=== PATIENT | male | born 1965 | race African-American/Black ===

== ENCOUNTER 2019-11-14 07:43 | Observation (INO) | payer OTHER ==
[~2019-11-14] VITALS: Ht 170.2 cm; Wt 97.2 kg
[2019-11-14] MEDS ORDERED: NITR0.4S14 SL (08:02)
[2019-11-14] MEDS ORDERED: LISI40TA PO (08:02)
[2019-11-14] MEDS ORDERED: ATOR80TA59 PO (08:02)
[2019-11-14] MEDS ORDERED: CETI10CH PO (08:02)
--- NOTE | 2019-11-14 08:39 | REP ---
Clinical: Headache . Comparison: None . Findings: The ventricles, sulci, and cisterns are normal in position and appearance. Sarabia-white differentiation is maintained. No acute intracranial hemorrhage, mass/mass effect, pathology or trauma/injury. No evidence for acute infarction. No extra-axial fluid collection. Calvarium is intact. Paranasal sinuses and mastoid air cells are clear. Impression: Normal noncontrast head CT. No evidence for acute intracranial pathology or trauma/injury. Electronically Signed by Sean Dhillon MD 11/14/2019 08:30 A
--- NOTE | 2019-11-14 08:40 | REP ---
Clinical: Chest pain . Comparison: 09/05/2006 . Findings: The mediastinum and cardiac silhouette are stable and within normal limits for portable technique. The lung blum are clear without acute consolidation, effusion, or pneumothorax. Skeletal structures are intact. Impression: No acute cardiopulmonary process appreciated. Electronically Signed by Sean Dhillon MD 11/14/2019 08:31 A
[2019-11-14] MEDS ORDERED: ISOVUE-370 76% 100ML VIAL (Q9967) As Ordered ONE (08:45)
[2019-11-14 08:54] LABS: BASO % 0.7 % (0.0-1.0); EOS # 0.3 10^3/uL (0.0-0.5); EOS % 11.1 % (0.0-3.0); HEMATOCRIT 40.8 % (42.0-52.0); HEMOGLOBIN 13.4 g/dl (13.5-17.5); LYMPH # 0.9 10^3/uL (1.5-5.0); LYMPH % 31.8 % (24.0-44.0); MEAN CORPUSCULAR HEMOGLOBIN 26.7 pg (27.0-33.0); MEAN CORPUSCULAR HGB CONC 32.8 g/dl (32.0-36.5); MEAN CORPUSCULAR VOLUME 81.4 fl (80.0-96.0); MONO # 0.3 10^3/uL (0.0-0.8); NEUTROPHILS # 1.3 10^3/uL (1.5-8.5); PLATELET COUNT, AUTOMATED 172 10^3/uL (150-450); RED BLOOD COUNT 5.01 10^6/uL (4.30-6.10); WHITE BLOOD COUNT 2.8 10^3/uL (4.0-10.0)
[2019-11-14] MEDS ORDERED: METOCLOPRAMIDE INJ 10MG/2ML VIAL (J2765) IV ONE (09:00)
[2019-11-14] MEDS ORDERED: diphenhydrAMINE INJ 50MG/ML VIAL (J1200) IV STA (09:00)
--- NOTE | 2019-11-14 09:10 | REP ---
Clinical: Acute chest pain and shortness of breath . Technique: Axial contrast enhanced images from the thoracic inlet to the upper abdomen using 75 ml Isovue 370 intravenous contrast material with multiplanar re-formations. Findings: Satisfactory enhancement of the pulmonary vasculature is achieved and no filling defects are identified to suggest pulmonary embolus. Further evaluation of the mediastinum demonstrates normal thoracic aorta, heart and pericardium. The bilateral lung blum are well aerated and clear without consolidation pleural effusion or pneumothorax. Tracheobronchial tree is patent. No nodule or mass lesion is identified. No adenopathy noted. Surrounding musculoskeletal structures intact Impression: No evidence for pulmonary embolus. No acute mediastinal or pleural parenchymal process. Electronically Signed by Saen Dhillon MD 11/14/2019 09:01 A
[2019-11-14 09:14] LABS: INFLUENZA A AMPLIFICATION NEGATIVE (NEGATIVE); INFLUENZA B AMPLIFICATION NEGATIVE (NEGATIVE)
[2019-11-14] MEDS ORDERED: KETOROLAC 30 MG/ML VIAL (J1885) IV ONE (09:15)
[2019-11-14 09:26] LABS: INR 0.99; PROTHROMBIN TIME 12.8 SECONDS (11.8-14.0)
[2019-11-14 09:27] LABS: ALT/SGPT 48 U/L (12-78); BILIRUBIN,DIRECT 0.3 MG/DL (0.0-0.2); BILIRUBIN,TOTAL 1.1 MG/DL (0.2-1.0); CPK CREATINE PHOSPHOKINASE 292 U/L (39-308); LIPASE 163 U/L (73-393); MB/CK RELATIVE INDEX 0.68 (< OR =4); NT-PRO BNP 28 PG/ML (<125); TOTAL PROTEIN 6.9 GM/DL (6.4-8.2); TROPONIN I < 0.02 NG/ML (< 0.10)
--- NOTE | 2019-11-14 11:55 | REP ---
MRI brain without contrast: History: Headaches, right-sided pain, aphasia. Comparison study: Comparison is made with today's CT study of the brain. Technique: Axial and sagittal imaging planes are utilized for T1 and T2-weighted scans. Sequences include spin-echo, fast spin echo, FLAIR, and diffusion weighted sequences. MRI findings: No bony calvarial lesion is seen. Craniocervical junction and upper cervical cord are normal in appearance. There is no MR evidence of significant paranasal sinus disease. No intraorbital abnormality is seen. The lateral, third, and fourth ventricles are normal in size and position. Sarabia-white differentiation pattern is intact above and below the tentorium. There is no evidence of intracranial hemorrhage. No mass, infarction, extra-axial fluid collection or midline shift is seen. No abnormal white matter lesion is seen. Impression: Negative noncontrast brain MRI study. Electronically Signed by De Baer MD 11/14/2019 11:46 A
--- NOTE | 2019-11-14 12:00 | REP ---
MR angiography the brain without contrast: History: Aphasia. Headache. Technique: 3-D [id number] MR angiography of the brain is acquired in the usual fashion and maximal intensity projection images were generated in rotational format about the vertical and horizontal axes. In addition, source axial T1-weighted images are viewed in cine mode. MR angiographic findings: The distal vertebral arteries are patent and co-dominant. Basilar artery is a little tortuous but widely patent. The posterior cerebral and superior cerebellar vessels are normal and symmetric. The distal internal carotid arteries are unremarkable. Anterior and middle cerebral arteries appear intact. There is no visible guido aneurysm or arteriovenous malformation. Impression: Unremarkable MR angiography the brain. Electronically Signed by eD Baer MD 11/14/2019 11:51 A
[2019-11-14] MEDS ORDERED: ASPIRIN 81 MG CHEW TABLET PO ONE (13:00)
[2019-11-14] MEDS ORDERED: ASPI81TA26 PO (13:13)
[2019-11-14] MEDS ORDERED: ALL10TAB29 PO (13:13)
--- NOTE | 2019-11-14 15:59 | HPEPDOC ---
General Date of Admission Date of Service: Nov 14, 2019 Chief Complaint The patient is a 54-year-old male admitted for slurred speech and L arm numbness Source: Patient, Family Exam Limitations: No limitations History of Present Illness 54 year old male presents with slurred speech and L sided arm numbness. States symptoms started at 7AM today morning while in a meeting, slurred speech and word finding difficulties noted by coworkers. Patient was subsequently brought to the ED, symptoms had largely resolved by the time he arrived here, he is now symptom free. CT head, MRI brain negative. Also with symptoms of R chest wall pain, started last evening, pleuritic in nature. Had episode of severe N/V x 2 episodes the day before. Also describes a frontal headache started last night as well, associated with blurry vision and photophobia which has since resolved. CTA chest negative here. Neurology consulted in ED, plan for carotid US, ECHO, admission for further management. Home Medications Scheduled Atorvastatin Calcium (Atorvastatin Calcium) 80 Mg Tablet, 80 MG PO QHS, (Reported) Cetirizine HCl (Cetirizine HCl) 10 Mg Tablet, 10 MG PO QHS, (Reported) Lisinopril (Lisinopril) 40 Mg Tablet, 40 MG PO DAILY, (Reported) Scheduled PRN Aspirin (Aspirin EC) 81 Mg Tablet.dr, 162 MG PO DAILY PRN for CHEST PAIN, (Reported) Nitroglycerin (Nitroglycerin) 0.4 Mg Tab.subl, 0.4 MG SL NITRO PRN for CHEST PAIN, (Reported) Allergies Coded Allergies: No Known Allergies (Unverified , 11/14/19) Past Medical History Medical History HTN, HLD, CAD s/p angioplasty Surgical History as above Family History Significant Family History: No pertinent family hx A-FIB/CHADSVASC A-FIB History Current/History of A-Fib/PAF?: No Review of Systems Constitutional: Denies: Chills, Fever, Night Sweats Eyes: Denies: Pain, Vision change ENT: Denies: Head Aches, Ear Pain, Dysphagia Skin: Denies: Rash, Lesions, Breakdown Pulmonary: Denies: Dyspnea, Cough Cardiovascular: Denies: Chest Pain, Palpitations, Orthopnea, Paroxysmal Noc. Dyspnea, Lt Headedness Gastrointestinal: Denies: Nausea, Vomiting, Abdominal Pain, Diarrhea Genitourinary: Denies: Dysuria, Frequency, Incontinence, Retention Hematologic: Denies: Bruising, Bleeding Excessively Musculoskeletal: Reports: Muscle Pain (R chest wall); Denies: Neck Pain, Back Pain, Joint Pain, Spasms Neurological: Denies: Weakness, Numbness, Change in speech, Confusion Psych: Reports: Mood Normal; Denies: Depression, Memory Issues Physical Examination General Exam: Positive: Alert, No Acute Distress Eye Exam: Positive: PERRLA, Conjunctiva & lids normal, EOMI; Negative: Sclera icteric ENT Exam: Positive: Atraumatic, Mucous membr. moist/pink, Pharynx Normal Neck Exam: Positive: Supple; Negative: JVD, thyromegaly Chest Exam: Positive: Clear to auscultation, Normal air movement Heart Exam: Positive: Rate Normal, Regular Rhythm, Normal S1, Normal S2; Negative: Murmurs, Rubs Telemetry: Positive: No significant arrhythmia Abdomen Exam: Positive: Normal bowel sounds, Soft; Negative: Tenderness, Hepatospenomegaly Extremity Exam: Positive: Normal pulses; Negative: Clubbing, Cyanosis, Edema Skin Exam: Positive: Nl turgor and temperature; Negative: Breakdown, Lesion Neuro Exam: Positive: Normal Gait, Normal Speech, Cranial Nerves 3-12 NL, Reflexes 2+ Psych Exam: Positive: Mental status NL, Mood NL, Oriented x 3 Vital Signs Vital Signs Date Time Temp Pulse Resp B/P (MAP) Pulse Ox O2 Delivery O2 Flow Rate FiO2 11/14/19 14:34 97.4 59 20 145/87 (106) 98 Room Air Laboratory Data Labs 24H Laboratory Tests 2 11/14/19 08:02: Bedside Glucose (Misc Panel) 118H 11/14/19 08:30: Prothrombin Time 12.8, Prothromb Time International Ratio 0.99, Total Bilirubin 1.1H, Direct Bilirubin 0.3H, Aspartate Amino Transf (AST/SGOT) 22, Alanine Aminotransferase (ALT/SGPT) 48, Alkaline Phosphatase 105, Total Creatine Kinase 292, Creatine Kinase MB 2.0, Creatine Kinase MB Relative Index 0.68, Troponin I < 0.02, XG-Wqy-P-Type Natriuretic Peptide 28, Total Protein 6.9, Albumin 4.0, Albumin/Globulin Ratio 1.38, Lipase 163, Thyroid Stimulating Hormone (TSH) 1.790 11/14/19 08:31: Immature Granulocyte % (Auto) 0.4, Neutrophils (%) (Auto) 46.0, Lymphocytes (%) (Auto) 31.8, Monocytes (%) (Auto) 10.0H, Eosinophils (%) (Auto) 11.1H, Basophils (%) (Auto) 0.7, Neutrophils # (Auto) 1.3L, Lymphocytes # (Auto) 0.9L, Monocytes # (Auto) 0.3, Eosinophils # (Auto) 0.3, Basophils # (Auto) 0.0, Nucleated Red Blood Cells % (auto) 0.0, Influenza Type A (RT-PCR) NEGATIVE, Influenza Type B (RT-PCR) NEGATIVE 11/14/19 08:35: POC Glucose (Misc Panel) 128H, POC Sodium (Misc Panel) 142, POC Potassium (Misc Panel) 4.1, POC Chloride (Misc Panel) 106, POC Total CO2 (Misc Panel) 26.0, POC Blood Urea Nitrogen (Misc Panel 14, POC Ionized Calcium (Misc Panel) 4.7, POC Creatinine (Misc Panel) 1.0, POC Hematocrit (Misc Panel) 39.0 CBC/BMP Laboratory Tests 11/14/19 08:31 Assessment/Plan 1. slurred speech/L arm weakness and numbness - ?TIA vs complex migraine. - MRI brain negative, symptoms have resolved. - neurology consulted in ED. - carotid dopplers, cardiac ECHO. - neuro checks. - ASA, statin. 2. R lateral chest wall pain - CTA chest negative for PE, no other abnormalities noted. - likely musculoskeletal. - would tx with nsaids prn. 3. HLD - continue statin. 4. HTN - continue lisinopril. Plan / VTE VTE Prophylaxis Ordered?: Yes VALENTINE DOWELL MD Nov 14, 2019 15:52
--- NOTE | 2019-11-14 17:21 | REP ---
Duplex carotid sonography: History: TIA. Findings: Antegrade flow is observed in both vertebral arteries. Right carotid: Right common carotid artery is unremarkable. There is mild soft plaquing in the bulb and proximal ICA on the right side on two-dimensional scanning. Color flow and spectral Doppler interrogation are unremarkable on the right. Velocity chart right carotid: CCA PSV 103 cm/s ICA PSV 58 cm/s ICA EDV 18 cm/s ECA PSV 60 cm/s ICA/CCA ratio normal 0.6. Impression: Less than 50% category narrowing in the right ICA. Left carotid: There is minimal plaquing seen in the proximal ICA and proximal ECA on the left side. The left CCA is unremarkable. Somewhat high bifurcation is observed. Velocity chart left carotid: CCA PSV 100 cm/s ICA PSV 59 cm/s ICA EDV 27 cm/s ECA PSV 35 cm/s ICA/CCA ratio normal 0.6. Impression: Less than 50% category narrowing in the left ICA by Doppler velocity criteria. Electronically Signed by De Baer MD 11/14/2019 05:47 P
[2019-11-14 17:42] VITALS: BP 150/87
--- NOTE | 2019-11-14 18:42 | ECGEPIP ---
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
[2019-11-14] MEDS: ATORVASTATIN 20 MG TAB PO SCH (20:44)
[2019-11-14 21:03] VITALS: BP 138/89
--- NOTE | 2019-11-14 22:28 | CR ---
DATE OF CONSULTATION: 11/14/2019 REFERRING PHYSICIAN: Dr. Lashon Miller REASON FOR CONSULTATION: Slurred speech and left arm numbness. HISTORY OF PRESENT ILLNESS: Geremias Benito is a 54-year-old man who woke up around 1:30 a.m. and right-sided chest wall and mid sternal pain in his chest. He also had a headache. He felt left arm was numb. He took two pills of nitroglycerin, but his headache got worse. His headache was 10/10 intensity, frontal in location, with nausea, photophobia and phonophobia. This was worse headache of his life. He went to work. He saw his in the morning who offered to drive him to work. She noted that he was in pain, but she did not notice any slurred speech. When he got , his coworkers noted that his speech was slurred and he had word-finding difficulty. He drove back home by himself, and his brought him to [facility] Emergency Department. His symptoms improved and resolved by 10:30 a.m. The patient denies any neck pain, back pains seizures, falls, loss of consciousness. HOME MEDICATIONS: - Lipitor 80 mg by mouth daily - Zyrtec 10 mg by mouth daily - lisinopril 40 mg by mouth daily - aspirin 81 mg every other day but his does not think that he takes aspirin - nitroglycerin 0.4 mg tablets every 5 minutes times three for chest pain. ALLERGIES: None. PAST MEDICAL HISTORY: Hypertension, dyslipidemia, coronary artery disease, status post angioplasty in 2002 without stenting. FAMILY HISTORY: Unremarkable and noncontributory. SOCIAL HISTORY: He denies smoking or illicit drugs. PHYSICAL EXAMINATION: Temperature 97.4, pulse 59, respiratory rate 20, blood pressure 145/87, 98% saturation on room air. Heart: Regular rate and rhythm. Lungs: Clear to auscultation. Abdomen: Soft, nontender, nondistended. No pedal edema. No musculoskeletal abnormalities. No rash. No signs of meningeal irritation. No tremor. The patient is awake, alert, oriented to place, person and time. Normal speech, comprehension and repetition. Extraocular muscles are intact. No facial weakness. Tongue and uvula are midline. 5/5 strength in all four extremities. Deep tendon reflexes are 1+ throughout. Gait is normal. There is no dysmetria. There is no nystagmus. Recent and distant memory is intact. REVIEW OF SYSTEMS: All systems were reviewed and found to be noncontributory except as mentioned in the history of the present illness. DIAGNOSTIC STUDIES: MRI and MRA of brain were reportedly unremarkable. ASSESSMENT: 1. Severe headache with slurred speech and left arm numbness. 2 There is concern for transient ischemic attack (TIA) and complex migraine. 3. Dyslipidemia, hypertension and coronary artery disease. PLAN: 1. Aspirin 81 mg by mouth daily and Lipitor 80 mg by mouth daily. 2. Long-term blood pressure goal should be below 130/80. 3. Ultrasound of carotids and echocardiogram. 4. Follow with our office in 2-4 weeks after hospital discharge.
[2019-11-15] MEDS ORDERED: ACETAMINOPHEN TAB 650MG DOSE (2X325MG) PO PRN (04:30)
[2019-11-15 06:00] VITALS: BP 137/95
[2019-11-15] MEDS ORDERED: lisinopriL 40 MG TAB PO ONE (06:30)
[2019-11-15] MEDS: ENOXAPARIN 40 MG/0.4 ML SYRINGE (J1650) SC SCH (08:46)
[2019-11-15] MEDS ORDERED: lisinopriL 40 MG TAB PO SCH (09:00)
[2019-11-15] MEDS ORDERED: ASPIRIN 325 MG TAB PO SCH (09:00)
--- NOTE | 2019-11-15 09:53 | IPNPDOC ---
Subjective Date Seen The patient was seen on 11/15/19. Subjective Chief Complaint/HPI seen and examined at bedside, no specific complaints today, headache is much better, chest wall pain has resolved. General: Reports: Normal Appetite; Denies: Chills, Night Sweats, Fatigue, Malaise Constitutional: Denies: Chills, Fever, Night Sweats Eyes: Denies: Pain, Vision change ENT: Denies: Head Aches, Ear Pain, Dysphagia Skin: Denies: Rash, Lesions, Breakdown Pulmonary: Denies: Dyspnea, Cough Cardiovascular: Denies: Chest Pain, Palpitations, Orthopnea, Paroxysmal Noc. Dyspnea, Lt Headedness Gastrointestinal: Denies: Nausea, Vomiting, Abdominal Pain, Diarrhea, Constipation Genitourinary: Denies: Dysuria, Frequency, Incontinence, Retention Hematologic: Denies: Bruising, Bleeding Excessively Musculoskeletal: Denies: Neck Pain, Back Pain, Joint Pain, Muscle Pain, Spasms Neurological: Denies: Weakness, Numbness, Change in speech, Confusion Psych: Reports: Mood Normal; Denies: Depression, Memory Issues Objective Physical Examination General Exam: Positive: Alert, No Acute Distress Eye Exam: Positive: PERRLA, Conjunctiva & lids normal, EOMI; Negative: Sclera icteric ENT Exam: Positive: Atraumatic, Mucous membr. moist/pink, Pharynx Normal Neck Exam: Positive: Supple; Negative: JVD, thyromegaly Chest Exam: Positive: Clear to auscultation, Normal air movement Heart Exam: Positive: Rate Normal, Regular Rhythm, Normal S1, Normal S2; Negative: Murmurs, Rubs Telemetry: Positive: No significant arrhythmia Abdomen Exam: Positive: Normal bowel sounds, Soft; Negative: Tenderness, Hepatospenomegaly Male Exam: Positive: Normal Genital Exam Extremity Exam: Positive: Normal pulses; Negative: Clubbing, Cyanosis, Edema Skin Exam: Positive: Nl turgor and temperature; Negative: Breakdown, Lesion Neuro Exam: Positive: Normal Gait, Normal Speech, Cranial Nerves 3-12 NL, Reflexes 2+ Psych Exam: Positive: Mental status NL, Mood NL, Oriented x 3 Assessment /Plan Assessment 1. slurred speech/L arm weakness and numbness - ?TIA vs complex migraine. - MRI brain negative, symptoms have resolved. - seen by neurology. - carotid dopplers with less than 50% narrowing L ICA, R normal, cardiac ECHO pending. - neuro checks. - ASA, statin. 2. R lateral chest wall pain - CTA chest negative for PE, no other abnormalities noted. - likely musculoskeletal. - would tx with nsaids prn. 3. HLD - continue statin. 4. HTN - continue lisinopril. Plan/VTE VTE Prophylaxis Ordered?: Yes VS, I&O, 24H, Fishbone Vital Signs/I&O Vital Signs Date Time Temp Pulse Resp B/P (MAP) Pulse Ox O2 Delivery O2 Flow Rate FiO2 11/15/19 06:00 98.3 73 18 137/95 (109) 98 Room Air I&O- Last 24 Hours up to 6 AM 11/15/19 06:00 Intake Total 1160 ml Output Total 0 ml Balance 1160 ml Laboratory Data 24H LABS Laboratory Tests 2 11/15/19 08:35: CBC/BMP VALENTINE DOWELL MD Nov 15, 2019 09:53
[2019-11-15 10:38] VITALS: BP 138/86
[2019-11-15 11:16] LABS: ALBUMIN 4.1 GM/DL (3.2-5.2); ALT/SGPT 48 U/L (12-78); BILIRUBIN,TOTAL 1.2 MG/DL (0.2-1.0); BLOOD UREA NITROGEN 11 MG/DL (7-18); CALCIUM LEVEL 9.3 MG/DL (8.5-10.1); CARBON DIOXIDE LEVEL 29 MEQ/L (21-32); CHLORIDE LEVEL 109 MEQ/L (98-107); CREATININE FOR GFR 1.07 MG/DL (0.70-1.30); GLOMERULAR FILTRATION RATE > 60.0 (>56); GLUCOSE, FASTING 123 MG/DL (70-100); POTASSIUM SERUM 5.4 MEQ/L (3.5-5.1); SODIUM LEVEL 139 MEQ/L (136-145); TOTAL PROTEIN 7.5 GM/DL (6.4-8.2)
[2019-11-15 14:00] VITALS: BP 138/88
[2019-11-15] MEDS: ATORVASTATIN 20 MG TAB PO SCH (20:34)
--- NOTE | 2019-11-15 21:39 | ECHO ---
DATE OF PROCEDURE: 11/15/2019 REFERRING PHYSICIAN: Dr. Lashon Miller INDICATION: Transient cerebral ischemia, unspecified. HEIGHT: 170 cm WEIGHT: 97 kg 2D MEASUREMENTS: Aortic annulus: 2.1 cm Ventricular septum: 1.19 cm Posterior wall: 1.16 cm Left ventricle diastole: 4.5 cm Left ventricle systole: 2.7 cm Aortic root: 3.3 cm Left atrium: 3.6 cm Inferior vena cava: 2.1 cm (more than 50% respiratory variation). DOPPLER MEASUREMENTS: Aortic valve velocity: 134 cm/s LVOT velocity: 108 cm/s LVOT VTI: 23.1 cm No aortic regurgitation. Very mild mitral regurgitation. Mitral E velocity: 77.1 cm/s Mitral A velocity: 59.6 cm/s Mitral deceleration time: 204 ms Very mild tricuspid regurgitation. Estimated right ventricle systolic pressure: 23-28 mmHg assuming a right atrial pressure of 5-10 mmHg. Very mild pulmonic regurgitation. MITRAL ANNULAR TISSUE DOPPLER: E prime septal: 5.3 cm/s E prime lateral: 9.3 cm/s DESCRIPTION: Rhythm was sinus. Image quality was adequate. No pericardial effusion. This was a 2D, M-mode, color flow Doppler and pulse wave Doppler examination and included mitral annular tissue Doppler. CONCLUSIONS: 1. Normal left ventricle internal dimensions and wall thickness. Normal regional left ventricular (LV) wall motion and wall thickening. Normal LV systolic function. Left ventricular ejection fraction (LVEF) 65% by visual estimate. Normal LV diastolic function. 2. Mild mitral annular calcification. Very mild mitral regurgitation. 3. Otherwise normal appearing echocardiogram Doppler findings.
[2019-11-15 22:00] VITALS: BP 132/74
[2019-11-16 06:00] VITALS: BP 124/80
[2019-11-16] MEDS ORDERED: lisinopriL 40 MG TAB PO SCH (09:00)
[2019-11-16] MEDS: ENOXAPARIN 40 MG/0.4 ML SYRINGE (J1650) SC SCH (09:00)
[2019-11-16] MEDS ORDERED: ASPIRIN 81 MG ENTERIC TAB PO SCH (09:46)
--- NOTE | 2019-11-16 10:36 | DS.PDOC ---
Discharge Summary General Date of Admission Nov 14, 2019 at 07:44 Discharge Summary PROCEDURES PERFORMED DURING STAY: [None]. ADMITTING DIAGNOSES: 1. . DISCHARGE DIAGNOSES: 1. . COMPLICATIONS/CHIEF COMPLAINT: Tia (Transient Ischemic Attack). HISTORY OF PRESENT ILLNESS: . HOSPITAL COURSE: continue asa, lisinopril, statin f/u with Anitha Мария 2-4 weeks DISCHARGE MEDICATIONS: Please see below. ALLERGIES: Please see below. PHYSICAL EXAMINATION ON DISCHARGE: VITAL SIGNS: Please see below. GENERAL: HEENT: NECK: CARDIOVASCULAR EXAMINATION: RESPIRATORY EXAMINATION: ABDOMINAL EXAMINATION: EXTREMITIES: SKIN: NEUROLOGICAL EXAMINATION: PSYCHIATRIC EXAMINATION: LABORATORY DATA: Please see below. IMAGING: PROGNOSIS: ACTIVITY: [As tolerated]. DIET: DISCHARGE PLAN: DISPOSITION: . DISCHARGE INSTRUCTIONS: 1. . ITEMS TO FOLLOWUP ON ON OUTPATIENT: 1. . DISCHARGE CONDITION: [Stable]. TIME SPENT ON DISCHARGE: Greater than minutes. Vital Signs/I&Os Vital Signs Date Time Temp Pulse Resp B/P (MAP) Pulse Ox O2 Delivery O2 Flow Rate FiO2 11/16/19 06:00 98.6 84 18 124/80 (95) 98 Room Air I&O- Last 24 Hours up to 6 AM 11/16/19 06:00 Intake Total 1060 ml Balance 1060 ml Discharge Medications Scheduled Atorvastatin Calcium (Atorvastatin Calcium) 80 Mg Tablet, 80 MG PO QHS, (Reported) Cetirizine HCl (Cetirizine HCl) 10 Mg Tablet, 10 MG PO QHS, (Reported) Lisinopril (Lisinopril) 40 Mg Tablet, 40 MG PO DAILY, (Reported) Scheduled PRN Aspirin (Aspirin EC) 81 Mg Tablet.dr, 162 MG PO DAILY PRN for CHEST PAIN, (Reported) Nitroglycerin (Nitroglycerin) 0.4 Mg Tab.subl, 0.4 MG SL NITRO PRN for CHEST PAIN, (Reported) Allergies Coded Allergies: No Known Allergies (Unverified , 11/14/19) VALENTINE DOWELL MD Nov 16, 2019 10:36
--- NOTE | 2019-11-16 14:33 | DS.PDOC ---
Discharge Summary General Date of Admission Nov 14, 2019 at 07:44 Date of Discharge 11/16/19 Discharge Summary PROCEDURES PERFORMED DURING STAY: [None]. ADMITTING DIAGNOSES: 1. slurred speech/L arm weakness and numbness DISCHARGE DIAGNOSES: 1. slurred speech/L arm weakness and numbness COMPLICATIONS/CHIEF COMPLAINT: TIA (Transient Ischemic Attack). HISTORY OF PRESENT ILLNESS: Please refer to for detailed HPI. HOSPITAL COURSE: Patient was admitted to the hospital and treated for the following conditions: 1. slurred speech/L arm weakness and numbness - ?TIA vs complex migraine. - MRI brain negative, symptoms have resolved. - seen by neurology Dr. Hsieh. - carotid dopplers with no significant stenosis, cardiac ECHO normal. - ASA, statin. - patient cleared by neurology for discharge, outpatient follow up in [address] Hsieh. DISCHARGE MEDICATIONS: Please see below. ALLERGIES: Please see below. PHYSICAL EXAMINATION ON DISCHARGE: VITAL SIGNS: Please see below. GENERAL: AAO x 3, NAD. HEENT: NCAT, anicteric sclera, PERRLA/EOMI NECK: supple, no JVD, no thyromegaly CARDIOVASCULAR EXAMINATION: NS1S2, regular, no murmurs/rubs RESPIRATORY EXAMINATION: CTA b/l, no wheezing, rales, rhonchi. ABDOMINAL EXAMINATION: NT/ND, positive bowel sounds, no masses EXTREMITIES: no cyanosis, clubbing, edema SKIN: warm, no rashes, NEUROLOGICAL EXAMINATION: AAO x 3, no motor/sensory deficits, PSYCHIATRIC EXAMINATION: calm, cooperative, normal affect. LABORATORY DATA: Please see below. PROGNOSIS: good ACTIVITY: [As tolerated]. DIET: low fat/low cholesterol DISPOSITION: 01 Home, Self-Care. DISCHARGE INSTRUCTIONS: 1. Please follow up with Dr. Hsieh in 2 weeks. ITEMS TO FOLLOWUP ON ON OUTPATIENT: 1. none DISCHARGE CONDITION: [Stable]. TIME SPENT ON DISCHARGE: Greater than [30] minutes. Vital Signs/I&Os Vital Signs Date Time Temp Pulse Resp B/P (MAP) Pulse Ox O2 Delivery O2 Flow Rate FiO2 11/16/19 06:00 98.6 84 18 124/80 (95) 98 Room Air I&O- Last 24 Hours up to 6 AM 11/16/19 06:00 Intake Total 1060 ml Balance 1060 ml Discharge Medications Scheduled Atorvastatin Calcium (Atorvastatin Calcium) 80 Mg Tablet, 80 MG PO QHS, (Reported) Cetirizine HCl (Cetirizine HCl) 10 Mg Tablet, 10 MG PO QHS, (Reported) Lisinopril (Lisinopril) 40 Mg Tablet, 40 MG PO DAILY, (Reported) Scheduled PRN Aspirin (Aspirin EC) 81 Mg Tablet.dr, 162 MG PO DAILY PRN for CHEST PAIN, (Reported) Nitroglycerin (Nitroglycerin) 0.4 Mg Tab.subl, 0.4 MG SL NITRO PRN for CHEST PAIN, (Reported) Allergies Coded Allergies: No Known Allergies (Unverified , 11/14/19) VALENTINE DOWELL MD Nov 16, 2019 14:33
== END 2019-11-16 11:25 | disposition home or self-care (01) ==
LOC: M ED 07:43 → M ED INP 07:44 → ENRESERV 16:05 → M MS5PR 17:26
PROVIDERS: ADMIT Internal Medicine; ATTEND Internal Medicine
DX: G45.9 Transient cerebral ischemic attack, unspecified (principal); G43.909 Migraine, unspecified, not intractable, without status migrainosus; R53.1 Weakness; E78.49 Other hyperlipidemia; I25.2 Old myocardial infarction; I25.10 Atherosclerotic heart disease of native coronary artery without angina pectoris; Z98.61 Coronary angioplasty status; Z79.82 Long term (current) use of aspirin; Z79.899 Other long term (current) drug therapy
CPT/HCPCS: 36415; 70450; 70544; 70551; 71045; 71275; 80047; 80053; 80076; 82550; 82553; 83690; 83880; 84443; 84484; 85025; 85610; 87502; 93005; 93041; 93306; 93880; 94760; 96374; 96375; 99285; J1200; J1650; J1885; J2765; Q9967

== ENCOUNTER 2021-03-19 13:39 | Emergency (ER) | payer OTHER ==
[~2021-03-19] VITALS: Ht 175.3 cm; Wt 95.6 kg
[~2021-03-19 13:39] MED LIST: ASPI81TA26 PO; ATOR80TA59 PO; CETI-24 PO; CETI10CH PO; LISI40TA4 PO; NITR0.4S14 SL
[2021-03-19] MEDS ORDERED: FISH1000 PO (14:09)
[2021-03-19] MEDS ORDERED: MELO7.5T35 PO (14:09)
[2021-03-19] MEDS ORDERED: ASPIRIN 81 MG CHEW TABLET PO ONE (14:10)
[2021-03-19 14:28] LABS: BASO % 0.8 % (0.0-1.0); EOS # 0.2 10^3/uL (0.0-0.5); EOS % 6.4 % (0.0-3.0); HEMATOCRIT 43.7 % (42.0-52.0); LYMPH # 1.2 10^3/uL (1.5-5.0); LYMPH % 34.6 % (24.0-44.0); MEAN CORPUSCULAR VOLUME 81.1 fl (80.0-96.0); MONO # 0.4 10^3/uL (0.0-0.8); MONO % 9.8 % (2.0-8.0); NEUTROPHILS # 1.7 10^3/uL (1.5-8.5); NEUTROPHILS % 48.1 % (36.0-66.0); PLATELET COUNT, AUTOMATED 185 10^3/uL (150-450); RED BLOOD COUNT 5.39 10^6/uL (4.30-6.10); WHITE BLOOD COUNT 3.6 10^3/uL (4.0-10.0)
[2021-03-19 14:40] LABS: INR 0.94; PROTHROMBIN TIME 12.8 SECONDS (12.5-14.3)
[2021-03-19 14:41] LABS: PARTIAL THROMBOPLASTIN TIME 28.9 SECONDS (24.2-38.5)
--- NOTE | 2021-03-19 14:58 | REP ---
INDICATION: CHEST PAIN. COMPARISON: 11/14/2019. TECHNIQUE: Single portable AP view of the chest was performed. FINDINGS: There is no acute infiltrate or pulmonary edema. Lungs are clear. The heart is not significantly enlarged. The mediastinal silhouette is unremarkable. The visualized osseous structures are intact. IMPRESSION: No acute pulmonary disease. <Electronically signed by Carlos Sarabia > 03/19/21 [id number]
[2021-03-19 15:07] LABS: ALBUMIN 4.1 GM/DL (3.2-5.2); ALT/SGPT 51 U/L (12-78); BILIRUBIN,DIRECT 0.3 MG/DL (0.0-0.2); BLOOD UREA NITROGEN 13 MG/DL (7-18); CALCIUM LEVEL 9.2 MG/DL (8.5-10.1); CARBON DIOXIDE LEVEL 26 MEQ/L (21-32); CHLORIDE LEVEL 112 MEQ/L (98-107); CREATININE FOR GFR 1.04 MG/DL (0.70-1.30); FREE T4 0.93 NG/DL (0.76-1.46); GLOMERULAR FILTRATION RATE > 60.0 (>56); GLUCOSE, FASTING 90 MG/DL (70-100); LIPASE 170 U/L (73-393); NT-PRO BNP 12 PG/ML (<125); POTASSIUM SERUM 4.3 MEQ/L (3.5-5.1); SODIUM LEVEL 144 MEQ/L (136-145); TOTAL PROTEIN 7.1 GM/DL (6.4-8.2)
[2021-03-19] MEDS ORDERED: ACETAMINOPHEN TAB 650MG DOSE (2X325MG) PO ONE (19:25)
[2021-03-19 19:46] VITALS: BP 138/85
--- NOTE | 2021-03-20 20:41 | ECGEPIP ---
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
== END 2021-03-19 19:58 | disposition home or self-care (01) ==
LOC: M ED 13:39
DX: R07.89 Other chest pain (principal); I25.2 Old myocardial infarction; E11.9 Type 2 diabetes mellitus without complications; I10 Essential (primary) hypertension; E78.5 Hyperlipidemia, unspecified; Z79.82 Long term (current) use of aspirin; Z79.899 Other long term (current) drug therapy

== ENCOUNTER → 2022-03-20 | Outpatient (CLI) | payer OTHER ==
[~2022-03-20] MED LIST changes: +CARV12.5 PO; +FISH1000 PO; +MELO7.5T35 PO; +OMEP-173 PO
== END ==
LOC: M LABSMTC 09:34
PROVIDERS: ATTEND Anesthesiology
DX: Z01.812 Encounter for preprocedural laboratory examination (principal); Z20.822 Contact with and (suspected) exposure to COVID-19

== ENCOUNTER 2022-03-23 06:20 | Day surgery (SDC) | payer OTHER ==
[~2022-03-23] VITALS: Ht 175.3 cm; Wt 91.2 kg
[2022-03-23] MEDS ORDERED: NS 1,000 ML IV ONE (07:05)
[2022-03-23] MEDS ORDERED: propofoL 200 MG/20 ML VIAL As Ordered ONE ×2 (07:53→07:56)
[2022-03-23] MEDS ORDERED: LIDOCAINE 2% INJ 100 MG/5 ML SYRINGE As Ordered ONE (07:53)
[2022-03-23 08:30] VITALS: BP 182/106
== END 2022-03-23 08:30 | disposition home or self-care (01) ==
LOC: M OPP 06:20
PROVIDERS: ATTEND Surgery
DX: Z86.010 Personal history of colon polyps (principal); D12.9 Benign neoplasm of anus and anal canal; K64.9 Unspecified hemorrhoids; Q43.8 Other specified congenital malformations of intestine; G47.30 Sleep apnea, unspecified; Z99.89 Dependence on other enabling machines and devices; I10 Essential (primary) hypertension; E78.00 Pure hypercholesterolemia, unspecified; K21.00 Gastro-esophageal reflux disease with esophagitis, without bleeding; G43.909 Migraine, unspecified, not intractable, without status migrainosus; Z79.02 Long term (current) use of antithrombotics/antiplatelets; Z79.51 Long term (current) use of inhaled steroids; Z79.899 Other long term (current) drug therapy

== ENCOUNTER 2022-05-17 18:15 | Emergency (ER) | payer OTHER ==
[~2022-05-17] VITALS: Ht 175.3 cm; Wt 90.9 kg
[2022-05-17] MEDS ORDERED: AMLO1TAB25 (18:28)
[2022-05-17] MEDS ORDERED: METF500T13 PO (18:28)
[2022-05-17] MEDS ORDERED: LANTINJ4 SC (18:29)
[2022-05-17] MEDS ORDERED: NS 2,730 ML in IV 1 EA IV ONE (21:05)
[2022-05-17] MEDS ORDERED: ACETAMINOPHEN TAB 650MG DOSE (2X325MG) PO ONE (21:15)
[2022-05-17 21:25] LABS: BLOOD UREA NITROGEN 17 MG/DL (7-18); CALCIUM LEVEL 9.2 MG/DL (8.5-10.1); CARBON DIOXIDE LEVEL 20 MEQ/L (21-32); CHLORIDE LEVEL 109 MEQ/L (98-107); CREATININE FOR GFR 1.22 MG/DL (0.70-1.30); GLOMERULAR FILTRATION RATE > 60.0 (>56); GLUCOSE, FASTING 177 MG/DL (70-100); POTASSIUM SERUM 4.6 MEQ/L (3.5-5.1); SODIUM LEVEL 138 MEQ/L (136-145)
[2022-05-17 21:39] LABS: BASO # 0.1 10^3/uL (0.0-0.2); BASO % 0.4 % (0.0-1.0); EOS # 0.1 10^3/uL (0.0-0.5); EOS % 0.3 % (0.0-3.0); HEMATOCRIT 38.3 % (42.0-52.0); HEMOGLOBIN 12.3 g/dl (13.5-17.5); LYMPH # 1.5 10^3/uL (1.5-5.0); MEAN CORPUSCULAR HEMOGLOBIN 25.9 pg (27.0-33.0); MEAN CORPUSCULAR HGB CONC 32.1 g/dl (32.0-36.5); MEAN CORPUSCULAR VOLUME 80.8 fl (80.0-96.0); MONO # 1.2 10^3/uL (0.0-0.8); MONO % 6.8 % (2.0-8.0); NEUTROPHILS # 14.2 10^3/uL (1.5-8.5); PLATELET COUNT, AUTOMATED 604 10^3/uL (150-450); RED BLOOD COUNT 4.74 10^6/uL (4.30-6.10)
[2022-05-17] MEDS ORDERED: ISOVUE-370 76% 100ML VIAL As Ordered ONE (21:48)
[2022-05-17] MEDS ORDERED: PIPERACILLIN/TAZOBACTAM SOD 3.375 GM in D5W MINI-BAG PLUS 50 ML IV ONE (23:20)
[2022-05-17 23:24] VITALS: BP 107/56
== END 2022-05-18 03:17 | disposition short-term general hospital (02) ==
LOC: M ED 18:15
DX: A41.9 Sepsis, unspecified organism (principal); T81.49XA Infection following a procedure, other surgical site, initial encounter; Z90.411 Acquired partial absence of pancreas; Z90.81 Acquired absence of spleen; C25.9 Malignant neoplasm of pancreas, unspecified; Z96.89 Presence of other specified functional implants; N40.0 Benign prostatic hyperplasia without lower urinary tract symptoms; K76.0 Fatty (change of) liver, not elsewhere classified; E11.9 Type 2 diabetes mellitus without complications; I10 Essential (primary) hypertension; E78.5 Hyperlipidemia, unspecified; Z79.899 Other long term (current) drug therapy
CPT/HCPCS: 71045; 74177; 80048; 83605; 85025; 87040; 87486; 87581; 87633; 87798; 93005; 96361; 96365; 96366; 99284; J2543; Q9967

== ENCOUNTER 2022-06-26 12:10 | Emergency (ER) | payer OTHER ==
[~2022-06-26 12:10] MED LIST changes: +AMLO1TAB25; +LANTINJ4 SC; +METF500T13 PO
[2022-06-26] MEDS ORDERED: LANTINJ4 SC (12:29)
[2022-06-26] MEDS ORDERED: SODIUM CHLORIDE 0.9% INJ 10 ML SYR IV PRN (12:45)
[2022-06-26 13:46] VITALS: BP 142/78
[2022-06-26] MEDS ORDERED: SODIUM CHLORIDE 0.9% INJ 10 ML SYR IV SCH (18:00)
== END 2022-06-26 13:47 | disposition home or self-care (01) ==
LOC: M ED 12:10
DX: T82.594A Other mechanical complication of infusion catheter, initial encounter (principal); E11.9 Type 2 diabetes mellitus without complications; I10 Essential (primary) hypertension; C25.9 Malignant neoplasm of pancreas, unspecified; Z79.4 Long term (current) use of insulin; Z79.899 Other long term (current) drug therapy

== ENCOUNTER → 2022-06-27 | Outpatient (REF) | payer OTHER ==
[2022-06-27 12:05] LABS: BASO # 0.1 10^3/uL (0.0-0.2); BASO % 1.3 % (0.0-1.0); EOS # 0.3 10^3/uL (0.0-0.5); EOS % 4.8 % (0.0-3.0); HEMATOCRIT 33.7 % (42.0-52.0); HEMOGLOBIN 10.4 g/dl (13.5-17.5); LYMPH # 1.2 10^3/uL (1.5-5.0); LYMPH % 21.2 % (24.0-44.0); MEAN CORPUSCULAR HEMOGLOBIN 25.1 pg (27.0-33.0); MEAN CORPUSCULAR HGB CONC 30.9 g/dl (32.0-36.5); MEAN CORPUSCULAR VOLUME 81.4 fl (80.0-96.0); MONO # 0.7 10^3/uL (0.0-0.8); MONO % 12.2 % (2.0-8.0); NEUTROPHILS # 3.3 10^3/uL (1.5-8.5); NEUTROPHILS % 60.3 % (36.0-66.0); PLATELET COUNT, AUTOMATED 416 10^3/uL (150-450); RED BLOOD COUNT 4.14 10^6/uL (4.30-6.10); WHITE BLOOD COUNT 5.5 10^3/uL (4.0-10.0)
[2022-06-27 12:31] LABS: ALBUMIN 2.9 GM/DL (3.2-5.2); ALT/SGPT 36 U/L (12-78); BILIRUBIN,TOTAL 0.8 MG/DL (0.2-1.0); BLOOD UREA NITROGEN 18 MG/DL (7-18); C REACTIVE PROTEIN QUANTITATIV 1.93 MG/DL (0.00-0.30); CALCIUM LEVEL 9.2 MG/DL (8.5-10.1); CARBON DIOXIDE LEVEL 24 MEQ/L (21-32); CHLORIDE LEVEL 108 MEQ/L (98-107); CREATININE FOR GFR 0.93 MG/DL (0.70-1.30); GLOMERULAR FILTRATION RATE > 60.0 (>56); GLUCOSE, FASTING 206 MG/DL (70-100); POTASSIUM SERUM 4.8 MEQ/L (3.5-5.1); SODIUM LEVEL 136 MEQ/L (136-145); TOTAL PROTEIN 7.7 GM/DL (6.4-8.2)
[2022-06-27 13:08] LABS: THYROGLOBULIN ANTIBODY < 15.0 U/ML (<60.0)
== END ==
LOC: M LAB REF 11:27
DX: K86.89 Other specified diseases of pancreas (principal); R10.9 Unspecified abdominal pain

== ENCOUNTER → 2022-07-04 | Outpatient (REF) | payer OTHER ==
[2022-07-04 17:51] LABS: BASO # 0.1 10^3/uL (0.0-0.2); BASO % 1.1 % (0.0-1.0); EOS # 0.5 10^3/uL (0.0-0.5); EOS % 7.8 % (0.0-3.0); HEMATOCRIT 32.3 % (42.0-52.0); HEMOGLOBIN 10.2 g/dl (13.5-17.5); LYMPH # 1.5 10^3/uL (1.5-5.0); MEAN CORPUSCULAR HEMOGLOBIN 25.4 pg (27.0-33.0); MEAN CORPUSCULAR HGB CONC 31.6 g/dl (32.0-36.5); MEAN CORPUSCULAR VOLUME 80.3 fl (80.0-96.0); MONO # 0.6 10^3/uL (0.0-0.8); MONO % 8.5 % (2.0-8.0); NEUTROPHILS # 3.9 10^3/uL (1.5-8.5); NEUTROPHILS % 59.4 % (36.0-66.0); PLATELET COUNT, AUTOMATED 409 10^3/uL (150-450); RED BLOOD COUNT 4.02 10^6/uL (4.30-6.10); WHITE BLOOD COUNT 6.6 10^3/uL (4.0-10.0)
[2022-07-04 18:18] LABS: ALT/SGPT 72 U/L (12-78); BILIRUBIN,TOTAL 0.6 MG/DL (0.2-1.0); BLOOD UREA NITROGEN 13 MG/DL (7-18); CALCIUM LEVEL 8.8 MG/DL (8.5-10.1); CARBON DIOXIDE LEVEL 23 MEQ/L (21-32); CHLORIDE LEVEL 110 MEQ/L (98-107); CREATININE FOR GFR 1.05 MG/DL (0.70-1.30); GLOMERULAR FILTRATION RATE > 60.0 (>56); GLUCOSE, FASTING 185 MG/DL (70-100); MAGNESIUM LEVEL 1.7 MG/DL (1.8-2.4); POTASSIUM SERUM 3.8 MEQ/L (3.5-5.1); SODIUM LEVEL 139 MEQ/L (136-145); TOTAL PROTEIN 7.5 GM/DL (6.4-8.2)
[2022-07-04 18:38] LABS: THYROGLOBULIN ANTIBODY < 15.0 U/ML (<60.0)
== END ==
LOC: M LAB REF 17:23
DX: K86.89 Other specified diseases of pancreas (principal); R10.9 Unspecified abdominal pain

== ENCOUNTER → 2022-10-14 | Outpatient (CLI) | payer OTHER ==
[~2022-10-14] MED LIST changes: +GASTROGRAFIN SOLUTION 30ML As Ordered ONE; +ISOVUE-370 76% 100ML VIAL As Ordered ONE; +MULT1TAB7 PO; +SUMA25TA3 PO
== END ==
LOC: M RAD 13:24
PROVIDERS: ATTEND Internal Medicine Medical Oncology
DX: D3A.8 Other benign neuroendocrine tumors (principal); Z90.49 Acquired absence of other specified parts of digestive tract; N28.1 Cyst of kidney, acquired; M47.9 Spondylosis, unspecified; K42.9 Umbilical hernia without obstruction or gangrene; Z90.81 Acquired absence of spleen
CPT/HCPCS: 71260; 74177; Q9963; Q9967

== ENCOUNTER → 2022-12-02 | Outpatient (CLI) | payer OTHER ==
[~2022-12-02] MED LIST changes: +ALLO100T PO; +CREO12CA PO; +CYCL5TAB PO; +GABA-1171 PO; -GASTROGRAFIN SOLUTION 30ML As Ordered ONE; -ISOVUE-370 76% 100ML VIAL As Ordered ONE; +MAGN400T2 PO; +RIBO400T PO
== END ==
LOC: M RAD 14:14
PROVIDERS: ATTEND Nurse Practitioner Family
DX: M51.16 Intervertebral disc disorders with radiculopathy, lumbar region (principal); M47.26 Other spondylosis with radiculopathy, lumbar region

== ENCOUNTER → 2023-01-16 | Outpatient (CLI) | payer OTHER | LOC: M RAD 08:52 | PROVIDERS: ATTEND Internal Medicine Medical Oncology | DX: C25.9 Malignant neoplasm of pancreas, unspecified (principal) | CPT/HCPCS: 78803; 78804; A9572 ==

== ENCOUNTER → 2023-01-18 | Outpatient (CLI) | payer OTHER | LOC: M RAD 07:42 | PROVIDERS: ATTEND Internal Medicine Medical Oncology | DX: N28.1 Cyst of kidney, acquired (principal) ==

== ENCOUNTER 2023-03-16 08:42 | Emergency (ER) | payer OTHER ==
[~2023-03-16] VITALS: Ht 175.3 cm; Wt 90.0 kg
[~2023-03-16 08:42] MED LIST changes: +AMBI5TAB PO
[2023-03-16] MEDS ORDERED: KETOROLAC 30 MG/ML 1ML VIAL IV ONE (09:15)
[2023-03-16 09:34] LABS: BASO # 0.1 10^3/uL (0.0-0.2); BASO % 1.3 % (0.0-1.0); EOS # 0.2 10^3/uL (0.0-0.5); EOS % 4.2 % (0.0-3.0); HEMATOCRIT 37.5 % (42.0-52.0); HEMOGLOBIN 12.3 g/dl (13.5-17.5); LYMPH # 1.7 10^3/uL (1.5-5.0); LYMPH % 34.9 % (24.0-44.0); MEAN CORPUSCULAR HEMOGLOBIN 27.1 pg (27.0-33.0); MEAN CORPUSCULAR HGB CONC 32.8 g/dl (32.0-36.5); MEAN CORPUSCULAR VOLUME 82.6 fl (80.0-96.0); MONO # 0.4 10^3/uL (0.0-0.8); MONO % 8.9 % (2.0-8.0); NEUTROPHILS # 2.4 10^3/uL (1.5-8.5); NEUTROPHILS % 50.3 % (36.0-66.0); PLATELET COUNT, AUTOMATED 345 10^3/uL (150-450); RED BLOOD COUNT 4.54 10^6/uL (4.30-6.10); WHITE BLOOD COUNT 4.7 10^3/uL (4.0-10.0)
[2023-03-16 10:01] LABS: CK-MB VALUE MASS 1.1 NG/ML (<3.6)
[2023-03-16 10:02] LABS: LIPASE 25 U/L (12-53)
[2023-03-16 10:04] LABS: ALBUMIN 3.7 G/DL (3.2-5.2); ALKALINE PHOSPHATASE 125 U/L (46-116); ALT/SGPT 35 U/L (7.0-40); AST/SGOT 20 U/L (<34); BILIRUBIN,DIRECT 0.2 MG/DL (<0.4); BILIRUBIN,TOTAL 0.8 MG/DL (0.3-1.2); BLOOD UREA NITROGEN 14 MG/DL (9-23); CALCIUM LEVEL 8.5 MG/DL (8.5-10.1); CARBON DIOXIDE LEVEL 23 MMOL/L (20-31); CHLORIDE LEVEL 108 MMOL/L (98-107); CPK CREATINE PHOSPHOKINASE 295 U/L (46-171); CREATININE FOR GFR 0.89 MG/DL (0.70-1.30); GLOMERULAR FILTRATION RATE > 60.0 (>56); GLUCOSE, FASTING 245 MG/DL (60-100); MB/CK RELATIVE INDEX 0.37 (< OR =4); POTASSIUM SERUM 4.1 MMOL/L (3.5-5.1); SODIUM LEVEL 139 MMOL/L (136-145); TOTAL PROTEIN 6.6 G/DL (5.7-8.2)
[2023-03-16 10:58] LABS: CK-MB VALUE MASS < 1.0 NG/ML (<3.6); CPK CREATINE PHOSPHOKINASE 281 U/L (46-171); MB/CK RELATIVE INDEX 0.35 (< OR =4)
[2023-03-16] MEDS ORDERED: ISOVUE-370 76% 100ML VIAL As Ordered ONE (11:27)
[2023-03-16 13:02] VITALS: BP 123/79; TEMP 96.5; O2SAT 98
== END 2023-03-16 13:06 | disposition home or self-care (01) ==
LOC: M ED 08:42
DX: R07.89 Other chest pain (principal); K21.9 Gastro-esophageal reflux disease without esophagitis; E11.9 Type 2 diabetes mellitus without complications; I10 Essential (primary) hypertension; E78.5 Hyperlipidemia, unspecified; G47.33 Obstructive sleep apnea (adult) (pediatric); Z98.61 Coronary angioplasty status; Z85.07 Personal history of malignant neoplasm of pancreas; Z79.899 Other long term (current) drug therapy
CPT/HCPCS: 71045; 71275; 74177; 80048; 80076; 82550; 82553; 83690; 84484; 85025; 93005; 93041; 94760; 96374; 99285; J1885; Q9967

== ENCOUNTER → 2023-04-11 | Day surgery (SDC) | payer OTHER ==
[~2023-04-11] VITALS: Ht 175.3 cm; Wt 90.4 kg
[~2023-04-11] MED LIST changes: +ACETAMINOPHEN 1000MG 100ML IV BAG As Ordered ONE; +ALLO10TA PO; +AMLO1TAB25 PO; +CARV6.25 PO; +CETI10TA4 PO; +INSULANT SC; +KETOROLAC 60MG 2ML VIAL As Ordered ONE; +LIDOCAINE 2% 100MG/5ML SDV (FOR ANES.) As Ordered ONE; +LR 1,000 ML IV SCH; +MAGN400T33 PO; +MIDAZOLAM INJ 2MG/2ML VIAL As Ordered ONE; +NOVOINJ3 SC; +NS 1,000 ML IV SCH; +OMEP40CA4 PO; +ONDANSETRON 4MG 2ML VIAL As Ordered ONE; +ONDANSETRON 4MG 2ML VIAL IV PRN; +PHENYLephrine 500MCG 5ML (100MCG/ML) SYRINGE As Ordered ONE; +ROCURONIUM BROMIDE 50MG/5ML VIAL As Ordered ONE; +SUGAMMADEX SODIUM 500 MG/5 ML VIAL (BRIDION) As Ordered ONE; +UNRESOLVED CLARIFICATION ENTRY XX SCH; +VITA200012 PO; +[UNRECOGNIZED DRUG - OTHER] PO; +[UNRECOGNIZED DRUG - OTHER] PO; +ceFAZolin SOD 2 GM in IV 1 EA IV ONE; +fentaNYL 100 MCG/2 ML INJECTION IV PRN; +fentaNYL 250 MCG/5 ML INJECTION As Ordered ONE; +oxyCODONE 5MG TAB PO PRN; +propofoL 200 MG/20 ML VIAL As Ordered ONE
[2023-04-11] MEDS: HYDROMORPHONE HCL 0.5 MG/ 0.5 ML SYRINGE IV PRN ×4 (13:18→13:36)
[2023-04-11 14:30] VITALS: BP 110/73; TEMP 96.8; O2SAT 100
== END | disposition home or self-care (01) ==
LOC: M SDC 09:12
PROVIDERS: ATTEND Surgery
DX: K43.2 Incisional hernia without obstruction or gangrene (principal); E11.9 Type 2 diabetes mellitus without complications; I10 Essential (primary) hypertension; I25.10 Atherosclerotic heart disease of native coronary artery without angina pectoris; E78.5 Hyperlipidemia, unspecified; G43.909 Migraine, unspecified, not intractable, without status migrainosus; G47.33 Obstructive sleep apnea (adult) (pediatric); Z79.4 Long term (current) use of insulin; Z79.899 Other long term (current) drug therapy
CPT/HCPCS: 49615; C1781; C9290; J0131; J0665; J0690; J1100; J1170; J1885; J2250; J2371; J2405; J3010; S2900

== ENCOUNTER → 2023-08-28 | Outpatient (CLI) | payer OTHER ==
[~2023-08-28] MED LIST changes: -ACETAMINOPHEN 1000MG 100ML IV BAG As Ordered ONE; +GASTROGRAFIN SOLUTION 30ML As Ordered ONE; +ISOVUE-370 76% 100ML VIAL As Ordered ONE; -KETOROLAC 60MG 2ML VIAL As Ordered ONE; -LIDOCAINE 2% 100MG/5ML SDV (FOR ANES.) As Ordered ONE; -LR 1,000 ML IV SCH; -MIDAZOLAM INJ 2MG/2ML VIAL As Ordered ONE; -NS 1,000 ML IV SCH; -ONDANSETRON 4MG 2ML VIAL As Ordered ONE; -ONDANSETRON 4MG 2ML VIAL IV PRN; -PHENYLephrine 500MCG 5ML (100MCG/ML) SYRINGE As Ordered ONE; -ROCURONIUM BROMIDE 50MG/5ML VIAL As Ordered ONE; -SUGAMMADEX SODIUM 500 MG/5 ML VIAL (BRIDION) As Ordered ONE; -UNRESOLVED CLARIFICATION ENTRY XX SCH; -ceFAZolin SOD 2 GM in IV 1 EA IV ONE; -fentaNYL 100 MCG/2 ML INJECTION IV PRN; -fentaNYL 250 MCG/5 ML INJECTION As Ordered ONE; -oxyCODONE 5MG TAB PO PRN; -propofoL 200 MG/20 ML VIAL As Ordered ONE
== END ==
LOC: M RAD 10:51
PROVIDERS: ATTEND Student in an Organized Health Care Education/Training Program
DX: C25.9 Malignant neoplasm of pancreas, unspecified (principal); N28.1 Cyst of kidney, acquired; K76.0 Fatty (change of) liver, not elsewhere classified
CPT/HCPCS: 74177; Q9963; Q9967

== ENCOUNTER → 2023-09-06 | Outpatient (REF) | payer OTHER ==
[~2023-09-06] MED LIST changes: -GASTROGRAFIN SOLUTION 30ML As Ordered ONE; -ISOVUE-370 76% 100ML VIAL As Ordered ONE
== END ==
LOC: M LAB REF 09:51
PROVIDERS: ATTEND Internal Medicine Medical Oncology
DX: C25.9 Malignant neoplasm of pancreas, unspecified (principal); R19.7 Diarrhea, unspecified; E10.40 Type 1 diabetes mellitus with diabetic neuropathy, unspecified

== ENCOUNTER → 2024-02-12 | Outpatient (REF) | payer OTHER ==
[~2024-02-12] MED LIST changes: +ACID1TAB PO; +CARV25TA PO; +GLUC4CHW PO; +MELO5CAP2 PO; +RELP40TA PO; +SILD25TA2 PO; +TRAZ-257 PO; +VITA500C24 PO; +ZOLO100T PO
[2024-02-16 23:28] LABS: 5HIAA 24HR URINE 6.8 mg/24 hr (0.0-14.9); 5HIAA TOTAL URINE 3.5 mg/L (Undefined)
== END ==
LOC: M LAB REF 09:22
PROVIDERS: ATTEND Internal Medicine Medical Oncology
DX: C25.4 Malignant neoplasm of endocrine pancreas (principal)

== ENCOUNTER → 2024-03-15 | Outpatient (CLI) | payer OTHER | LOC: M PLAIMG 12:11 | PROVIDERS: ATTEND Physician Assistant | DX: M51.36 Other intervertebral disc degeneration, lumbar region (principal); M48.061 Spinal stenosis, lumbar region without neurogenic claudication ==

== ENCOUNTER 2024-05-20 08:16 | Emergency (ER) | payer OTHER ==
[~2024-05-20] VITALS: Ht 175.3 cm; Wt 90.5 kg
[2024-05-20] MEDS: ASPIRIN 81MG CHEW TABLET PO ONE (09:00)
[2024-05-20] MEDS: NITROGLYCERIN 0.4MG SUBL TABLET SL PRN (09:06)
[2024-05-20 09:17] VITALS: BP 109/64
[2024-05-20 09:19] LABS: BASO % 0.7 % (0.0-1.0); EOS # 0.3 10^3/uL (0.0-0.5); EOS % 5.6 % (0.0-3.0); HEMATOCRIT 40.2 % (42.0-52.0); LYMPH # 2.5 10^3/uL (1.5-5.0); LYMPH % 43.1 % (24.0-44.0); MEAN CORPUSCULAR HEMOGLOBIN 27.7 pg (27.0-33.0); MEAN CORPUSCULAR HGB CONC 32.3 g/dl (32.0-36.5); MEAN CORPUSCULAR VOLUME 85.5 fl (80.0-96.0); MONO # 0.5 10^3/uL (0.0-0.8); MONO % 9.2 % (2.0-8.0); NEUTROPHILS # 2.4 10^3/uL (1.5-8.5); NEUTROPHILS % 41.1 % (36.0-66.0); PLATELET COUNT, AUTOMATED 320 10^3/uL (150-450); WHITE BLOOD COUNT 5.8 10^3/uL (4.0-10.0)
[2024-05-20 09:22] LABS: INR 0.93; PROTHROMBIN TIME 12.2 SECONDS (12.5-14.5)
[2024-05-20] MEDS: MORPHINE 4 MG/ML 1ML VIAL IV PRN (09:22)
[2024-05-20 09:56] LABS: CK-MB VALUE MASS < 1.0 NG/ML (<3.6); CPK CREATINE PHOSPHOKINASE 308 U/L (46-171); MB/CK RELATIVE INDEX 0.32 (< OR =4)
[2024-05-20 10:34] LABS: LIPASE 26 U/L (12-53)
[2024-05-20 10:35] LABS: CPK CREATINE PHOSPHOKINASE 240 U/L (46-171)
[2024-05-20] MEDS: NS 500 ML IV ONE (10:36)
[2024-05-20 10:52] LABS: ALBUMIN 3.6 G/DL (3.2-5.2); ALKALINE PHOSPHATASE 128 U/L (46-116); ALT/SGPT 45 U/L (7.0-40); AST/SGOT 24 U/L (<34); BILIRUBIN,DIRECT 0.3 MG/DL (<0.4); BILIRUBIN,TOTAL 0.8 MG/DL (0.3-1.2); BLOOD UREA NITROGEN 15 MG/DL (9-23); CALCIUM LEVEL 8.7 MG/DL (8.3-10.6); CARBON DIOXIDE LEVEL 24 MMOL/L (20-31); CHLORIDE LEVEL 113 MMOL/L (98-107); CK-MB VALUE MASS < 1.0 NG/ML (<3.6); CREATININE FOR GFR 0.94 MG/DL (0.70-1.30); GLOMERULAR FILTRATION RATE > 60.0 (>49); GLUCOSE, FASTING 140 MG/DL (74-106); MB/CK RELATIVE INDEX 0.41 (< OR =4); POTASSIUM SERUM 4.3 MMOL/L (3.5-5.1); SODIUM LEVEL 140 MMOL/L (136-145); THYROID STIMULATING HORMONE 1.089 uIU/ML (0.55-4.78); TOTAL PROTEIN 6.4 G/DL (5.7-8.2)
[2024-05-20] MEDS ORDERED: ISOVUE-370 76% 100ML VIAL As Ordered ONE (10:55)
[2024-05-20 12:26] LABS: CK-MB VALUE MASS < 1.0 NG/ML (<3.6)
[2024-05-20 12:27] LABS: CPK CREATINE PHOSPHOKINASE 214 U/L (46-171); MB/CK RELATIVE INDEX 0.46 (< OR =4)
[2024-05-20] MEDS: KETOROLAC 30 MG/ML 1ML VIAL IV ONE (12:30)
[2024-05-20] MEDS: MORPHINE 2 MG/ML 1ML VIAL IV PRN (13:05)
[2024-05-20] MEDS ORDERED: LIDO1PAD TOP (14:35)
[2024-05-20] MEDS ORDERED: UBRO50TA PO (14:35)
[2024-05-20] MEDS ORDERED: ONDA-83 PO (14:35)
[2024-05-20] MEDS ORDERED: HOME MED LIST COMPLETE! XX SCH (14:35)
[2024-05-20] MEDS ORDERED: ASPI-615 PO (14:35)
[2024-05-20] MEDS ORDERED: METF-838 PO (14:35)
[2024-05-20] MEDS ORDERED: SILD100T7 PO (14:35)
[2024-05-20] MEDS ORDERED: VITA100T16 PO (14:35)
[2024-05-20] MEDS ORDERED: MULT-40 PO (14:35)
[2024-05-20 15:10] VITALS: BP 150/91; TEMP 97.9; O2SAT 94
== END 2024-05-20 15:18 | disposition home or self-care (01) ==
LOC: M ED 08:16
DX: R07.9 Chest pain, unspecified (principal); E11.9 Type 2 diabetes mellitus without complications; I10 Essential (primary) hypertension; E78.5 Hyperlipidemia, unspecified; I25.2 Old myocardial infarction; Z98.61 Coronary angioplasty status; Z79.4 Long term (current) use of insulin; Z79.899 Other long term (current) drug therapy
CPT/HCPCS: 71045; 71275; 80048; 80076; 82550; 82553; 83690; 83880; 84439; 84443; 84484; 85025; 85610; 93005; 93041; 94760; 96361; 96374; 96376; 99285; Q9967

== ENCOUNTER → 2024-06-14 | Outpatient (CLI) | payer OTHER ==
[~2024-06-14] MED LIST changes: +ASPI-615 PO; +LIDO1PAD TOP; +METF-838 PO; +MULT-40 PO; +ONDA-83 PO; +SILD100T7 PO; +UBRO50TA PO; +VITA100T16 PO
== END ==
LOC: M LAB 11:11
PROVIDERS: ATTEND Registered Nurse
DX: R07.89 Other chest pain (principal); R94.31 Abnormal electrocardiogram [ECG] [EKG]

== ENCOUNTER → 2024-07-05 | Outpatient (CLI) | payer OTHER | LOC: M PLAIMG 10:48 | PROVIDERS: ATTEND Registered Nurse | DX: I10 Essential (primary) hypertension (principal); I27.20 Pulmonary hypertension, unspecified; R07.89 Other chest pain; I08.3 Combined rheumatic disorders of mitral, aortic and tricuspid valves ==

== ENCOUNTER → 2024-07-29 | Outpatient (CLI) | payer OTHER ==
[~2024-07-29] MED LIST changes: -CYCL5TAB PO; +CYCL5TAB4 PO; +PEPC1TAB5 PO; +SUCR1SS PO
== END ==
LOC: M SLEEP 20:00
PROVIDERS: ATTEND Physician Assistant
DX: R06.83 Snoring (principal)

== ENCOUNTER 2024-08-14 08:11 | Emergency (ER) | payer OTHER ==
[~2024-08-14] VITALS: Ht 175.3 cm; Wt 88.6 kg
[~2024-08-14 08:11] MED LIST changes: -PEPC1TAB5 PO; -SUCR1SS PO
[2024-08-14] MEDS: ONDANSETRON 4MG 2ML VIAL IV ONE (09:12)
[2024-08-14] MEDS: MORPHINE 4 MG/ML 1ML VIAL IV ONE (09:12)
[2024-08-14] MEDS: NS 1,000 ML IV ONE (09:14)
[2024-08-14 09:44] LABS: BASO # 0.1 10^3/uL (0.0-0.2); BASO % 1.4 % (0.0-1.0); EOS # 0.3 10^3/uL (0.0-0.5); HEMOGLOBIN 13.8 g/dl (13.5-17.5); LYMPH # 1.6 10^3/uL (1.5-5.0); MEAN CORPUSCULAR HEMOGLOBIN 27.1 pg (27.0-33.0); MEAN CORPUSCULAR HGB CONC 32.9 g/dl (32.0-36.5); MEAN CORPUSCULAR VOLUME 82.4 fl (80.0-96.0); MONO # 0.4 10^3/uL (0.0-0.8); MONO % 9.4 % (2.0-8.0); NEUTROPHILS # 1.8 10^3/uL (1.5-8.5); NEUTROPHILS % 42.2 % (36.0-66.0); PLATELET COUNT, AUTOMATED 291 10^3/uL (150-450); WHITE BLOOD COUNT 4.2 10^3/uL (4.0-10.0)
[2024-08-14 10:07] LABS: LIPASE 33 U/L (12-53)
[2024-08-14 10:09] LABS: ALBUMIN 3.6 G/DL (3.2-5.2); ALKALINE PHOSPHATASE 108 U/L (40-129); ALT/SGPT 37 U/L (7.0-40); AST/SGOT 22 U/L (<34); BILIRUBIN,DIRECT 0.3 MG/DL (<0.4); BILIRUBIN,TOTAL 0.8 MG/DL (0.3-1.2); BLOOD UREA NITROGEN 15 MG/DL (9-23); CALCIUM LEVEL 9.5 MG/DL (8.3-10.6); CARBON DIOXIDE LEVEL 25 MMOL/L (20-31); CHLORIDE LEVEL 107 MMOL/L (98-107); CREATININE FOR GFR 0.89 MG/DL (0.70-1.30); GLOMERULAR FILTRATION RATE > 60.0 (>49); GLUCOSE, FASTING 152 MG/DL (74-106); POTASSIUM SERUM 4.3 MMOL/L (3.5-5.1); SODIUM LEVEL 140 MMOL/L (136-145); TOTAL PROTEIN 7.1 G/DL (5.7-8.2)
[2024-08-14] MEDS ORDERED: ISOVUE-370 76% 100ML VIAL As Ordered ONE (10:10)
[2024-08-14 11:01] VITALS: BP 116/68; TEMP 97.2; O2SAT 97
[2024-08-14] MEDS ORDERED: SUCR1SS PO (11:08)
[2024-08-14] MEDS ORDERED: PEPC1TAB5 PO (11:08)
[2024-08-14] MEDS: FAMOTIDINE 20 MG TAB PO ONE (11:12)
== END 2024-08-14 11:21 | disposition home or self-care (01) ==
LOC: M ED 08:11
DX: K29.00 Acute gastritis without bleeding (principal); E11.9 Type 2 diabetes mellitus without complications; Z79.4 Long term (current) use of insulin; Z86.73 Personal history of transient ischemic attack (TIA), and cerebral infarction without residual deficits; E78.5 Hyperlipidemia, unspecified; G47.33 Obstructive sleep apnea (adult) (pediatric); K76.0 Fatty (change of) liver, not elsewhere classified; Z79.84 Long term (current) use of oral hypoglycemic drugs; Z79.899 Other long term (current) drug therapy
CPT/HCPCS: 74177; 76705; 80048; 80076; 81001; 83605; 83690; 85025; 96374; 96375; 99284; J2405; Q9967

== ENCOUNTER 2025-01-21 20:59 | Emergency (ER) | payer OTHER ==
[~2025-01-21] VITALS: Ht 175.3 cm; Wt 88.2 kg
[~2025-01-21 20:59] MED LIST changes: -CYCL-707 PO
[2025-01-21] MEDS: ACETAMINOPHEN 500 MG TAB PO ONE (21:40)
[2025-01-21 22:06] LABS: BASO # 0.1 10^3/uL (0.0-0.2); BASO % 0.8 % (0.0-1.0); EOS # 0.4 10^3/uL (0.0-0.5); EOS % 4.2 % (0.0-3.0); HEMATOCRIT 42.6 % (42.0-52.0); LYMPH # 2.3 10^3/uL (1.5-5.0); MEAN CORPUSCULAR HEMOGLOBIN 27.5 pg (27.0-33.0); MEAN CORPUSCULAR HGB CONC 32.9 g/dl (32.0-36.5); MEAN CORPUSCULAR VOLUME 83.7 fl (80.0-96.0); MONO # 0.8 10^3/uL (0.0-0.8); MONO % 8.3 % (2.0-8.0); NEUTROPHILS # 6.4 10^3/uL (1.5-8.5); NEUTROPHILS % 63.5 % (36.0-66.0); PLATELET COUNT, AUTOMATED 308 10^3/uL (150-450); RED BLOOD COUNT 5.09 10^6/uL (4.30-6.10); WHITE BLOOD COUNT 10.1 10^3/uL (4.0-10.0)
[2025-01-21 22:28] LABS: ALBUMIN 4.3 G/DL (3.2-5.2); BILIRUBIN,DIRECT 0.2 MG/DL (<0.4); BILIRUBIN,TOTAL 0.8 MG/DL (0.3-1.2); CALCIUM LEVEL 9.8 MG/DL (8.3-10.6); CREATININE FOR GFR 1.03 MG/DL (0.70-1.30); GLOMERULAR FILTRATION RATE 82.6 (>49); POTASSIUM SERUM 4.6 MMOL/L (3.5-5.1); TOTAL PROTEIN 7.8 G/DL (5.7-8.2)
[2025-01-22] MEDS ORDERED: ISOVUE-370 76% 100ML VIAL As Ordered ONE (01:41)
[2025-01-22 04:50] LABS: KETONE, URINE AUTO RFX NEGATIVE (NEGATIVE); LEUKOCYTE ESTERASE UR AUTO RFX NEGATIVE (NEGATIVE); NITRITE, URINE AUTO RFX NEGATIVE (NEGATIVE); RBC, URINE AUTO RFX 0 /HPF (0-3); SQUAM EPITHELIAL CELL UR AURFX 1 /HPF (0-6); WBC, URINE AUTO RFX 0 /HPF (0-3)
[2025-01-22] MEDS ORDERED: CYCL-707 PO (06:59)
[2025-01-22] MEDS: diazePAM 10MG/2ML SYRINGE IV ONE (07:11)
[2025-01-22 08:12] VITALS: BP 106/71; TEMP 97.8; O2SAT 97
[2025-01-31] MEDS ORDERED: GABA-1172 (14:50)
== END 2025-01-22 08:15 | disposition home or self-care (01) ==
LOC: M ED 20:59 → EDBD 20:59 → M ED 01-22 08:15
DX: M79.10 Myalgia, unspecified site (principal); B34.9 Viral infection, unspecified
CPT/HCPCS: 71045; 74177; 80048; 80076; 81001; 83690; 85025; 87486; 87581; 87633; 87798; 96374; 99285; J3360; Q9967

== ENCOUNTER → 2025-01-21 | Outpatient (CLI) | payer OTHER ==
[~2025-01-21] MED LIST changes: -AMBI5TAB PO; +CYCL-707 PO; +PEPC1TAB5 PO; +SUCR1SS PO; +ZOLP-532 PO
== END ==
LOC: M RAD 07:01
PROVIDERS: ATTEND Physician Assistant
DX: R10.11 Right upper quadrant pain (principal); R19.7 Diarrhea, unspecified; R14.0 Abdominal distension (gaseous); N28.1 Cyst of kidney, acquired

== ENCOUNTER → 2025-08-12 | Outpatient (CLI) | payer OTHER ==
[~2025-08-12] MED LIST changes: +CYCL-707 PO; +GABA-1172; +LISI40TA10 PO; -LISI40TA4 PO
[2025-08-12 11:28] LABS: ALT/SGPT 32.0 U/L (7.0-40); AST/SGOT 24.0 U/L (<34); CALCIUM LEVEL 9.8 MG/DL (8.3-10.6); CARBON DIOXIDE LEVEL 28.0 MMOL/L (20-31); CHLORIDE LEVEL 105.0 MMOL/L (98-107); CREATININE FOR GFR 1.03 MG/DL (0.70-1.30); GLOMERULAR FILTRATION RATE 82.1 (>49); POTASSIUM SERUM 4.5 MMOL/L (3.5-5.1); SODIUM LEVEL 143.0 MMOL/L (136-145)
== END ==
LOC: M LAB 10:11
PROVIDERS: ATTEND Physician Assistant
DX: R14.0 Abdominal distension (gaseous) (principal); R10.11 Right upper quadrant pain; R19.7 Diarrhea, unspecified

== ENCOUNTER → 2025-08-25 | Outpatient (CLI) | payer OTHER ==
[~2025-08-25] MED LIST changes: +ISOVUE-370 76% 100 ML VIAL As Ordered ONE
== END ==
LOC: M RAD 17:02
PROVIDERS: ATTEND Physician Assistant
DX: R14.0 Abdominal distension (gaseous) (principal); R10.11 Right upper quadrant pain; R19.7 Diarrhea, unspecified; K76.0 Fatty (change of) liver, not elsewhere classified; N28.1 Cyst of kidney, acquired; K42.9 Umbilical hernia without obstruction or gangrene; I70.0 Atherosclerosis of aorta
CPT/HCPCS: 74177; Q9967